=== PATIENT | male | born 1995 | race Two or more races ===

== ENCOUNTER 2024-01-27 21:42 | Emergency (ER) | payer SELFPAY ==
[~2024-01-27] VITALS: Ht 190.5 cm; Wt 9.1 kg
[2024-01-27 21:53] VITALS: TEMP 98.3
[2024-01-27 23:50] VITALS: BP 128/80; PULSE 98; RESP 16
== END 2024-01-28 01:04 | disposition home or self-care (01) ==
LOC: EMS 21:45
DX: F15.90 Other stimulant use, unspecified, uncomplicated (principal)
CPT/HCPCS: 99281; Z7502